=== PATIENT | female | born 1970 | race Caucasian/White ===

== ENCOUNTER 2017-08-11 13:55 | Day surgery (SDC) | payer BC ==
[2017-08-07 16:02] LABS: BASOPHILS 0.6 %; BASOPHILS ABSOLUTE 0.05 10/3/uL (0.0-0.16); EOSINOPHILS 1.3 %; EOSINOPHILS ABSOLUTE 0.11 10/3/uL (0.0-0.53); HEMOGLOBIN 12.1 g/dL (12.0-16.0); IMMATURE GRANULOCYTES 0.2 %; IMMATURE GRANULOCYTES ABSOLUTE 0.02 10/3/uL (0.0-0.11); LYMPHOCYTES 26.7 %; LYMPHOCYTES ABSOLUTE 2.26 10/3/uL (0.67-4.30); MEAN CORPUS HGB CONC 32.4 g/dL (32.0-36.0); MEAN CORPUSCULAR HEMOGLOB 29.2 pg (26.0-34.0); MEAN CORPUSCULAR VOLUME 90.3 fL (80-100); MEAN PLATELET VOLUME 9.7 fL (9.2-13.0); MONOCYTES 5.7 %; MONOCYTES ABSOLUTE 0.48 10/3/uL (0.21-1.20); NEUTROPHILS 65.5 %; NEUTROPHILS ABSOLUTE 5.54 10/3/uL (2.02-8.40); PLATELET COUNT 425 10/3/uL (150-400); RBC DISTRIBUTION WIDTH 15.5 % (12.0-16.0); RED CELL COUNT 4.14 10/6/uL (4.0-5.6); WHITE BLOOD CELLS 8.5 10/3/uL (4.5-10.5)
[2017-08-07 16:04] LABS: HEMATOCRIT 37.4 % (36.0-48.0); MANUAL DIFF NO %
[2017-08-07 16:18] LABS: BUN (BLOOD UREA NITROGEN) 11 MG/DL (6-23); CHLORIDE, SERUM 108 MMOL/L (96-112); CO2 (CARBON DIOXIDE) 26 MMOL/L (24-34); CREATININE 0.64 MG/DL (0.55-1.02); GFR AFRICAN AMERICAN 121 ML/MIN (>=60); GFR NON AFRICAN AMERICAN 105 ML/MIN (>=60); GLUCOSE, SERUM 90 MG/DL (60-99); POTASSIUM, SERUM 3.8 MMOL/L (3.5-5.3); SODIUM, SERUM 138 MMOL/L (135-148)
[2017-08-07 16:19] LABS: CALCIUM, SERUM 8.5 MG/DL (8.5-10.4)
[~2017-08-11] VITALS: Ht 162.6 cm; Wt 54.4 kg
--- NOTE | ~2017-08-11 | OP ---
Record Of [address] [place]. [address] NAME: AMERICA PETERSEN : 66 STATUS : [facility]#: [id number] AGE: 47 ADM/REG DATE : 08/11/17 MR#: [id number] REPORT SERV DATE: 08/12/17 DICTATED BY: LIYA HARRIS DATE: 08/11/17 REPORT STATUS : Draft TRANSCRIBED BY: MODL DATE: 08/11/17 DATE OF PROCEDURE: PREOPERATIVE DIAGNOSES: 1. Soft tissue tumor of the left flank. 2. Soft tissue tumor of the left posterior scapular area. OPERATION: 1. Resection of soft tissue tumor of the left flank. Intramuscular large lipoma. 2. Resection of soft tissue tumor subcutaneous of the left posterior scapular area. POSTOPERATIVE DIAGNOSES: 1. Soft tissue tumors of the left flank intramuscular lipoma. Well encapsulated, large. 2. Soft tissue tumor of the left posterior scapular area, subcutaneous, multi-lobulated, and encapsulated lipomatous mass. CLINICAL LAB TECHNOLOGIST RESIDENT SURGEON: Ericka Garza M.D. ANESTHESIA: General. COMPLICATIONS: None. ESTIMATED BLOOD LOSS: Minimal. COUNTS: Correct. DISPOSITION: PACU. SPECIMENS: To pathology: 1. Soft tissue tumor of the left flank. The area measures 8 x 7 cm, well encapsulated lipomatous tumor. 2. Soft tissue tumor of the left posterior scapular area. Tumor measures 4 x 6.5 cm. TYPE OF RESECTION: Complete resection. DRAINS: None. Preoperative evaluation of pain with chest x-rays, ultrasounds, physical exams, and review of systems as well as history. EDUCATION: 1. The patient educated in the management of soft tissue tumor. 2. Informed consent. 3. General surgical procedures. Informed consent obtained. Record Of [address] [place]. [address] NAME: AMERICA PETERSEN : 66 STATUS : [facility] PAT#: [id number] AGE: 47 ADM/REG DATE : 08/11/17 MR#: [id number] REPORT SERV DATE: 08/12/17 DICTATED BY: LIYA HARRIS DATE: 08/11/17 REPORT STATUS : Draft TRANSCRIBED BY: MODL DATE: 08/11/17 DISCUSSION: We discussed the options in management, indication, potential risks, complications, limitations, and alternatives. SUMMARY: She was brought to the operating room, placed in supine. The patient identified. Procedure confirmed. A time-out protocol enforced. Prophylactic IV antibiotics given. She was placed in the right lateral decubitus position. The left flank and the left scapular area were prepped and draped and exposed. She was in the right lateral decubitus position. The flank area was initially approached. A transverse incision was made directly over the area, carried down through the underlying subcutaneous tissue. We used a scalpel. The superficial aponeurosis was sharply incised exposing the underlying flank muscles. This is part of the oblique muscles of the left flank. Obviously, the tumor was intramuscular. So, the fibers of the muscle well and split in its longitudinal direction. After we the fibers of the muscle, we clearly exposed the soft tissue lipomatous, well- lobulated yellowish tumor. Using careful technique, combination of retraction, sharp dissection with the scalpel, very selective limited electrocoagulation. Using the plasma blade, we the tumor from the surrounding muscle layers and from the underlying ribs. The tumor was excised completely and sent to pathology for analysis. Meticulous technique was used throughout the field. A small nerve sensory branch inferior to the tumor was dissected free and preserved intact. The small vessels were electrocoagulated. No large vessels were dissected, encountered, or transected. As we the specimen from the cavity of the flank in all directions superiorly, inferiorly, anteriorly, and posteriorly as well as next to the ribs, we ensured that all the lipomatous tissue was removed. This was removed in one piece at this one single mass that was well encapsulated. Hemostasis was secured. The field was irrigated with normal saline solution and then we used Baldo to enhance hemostasis. No evidence of any residual masses were left in the field. The muscle fibers were approximated with interrupted sutures of 3-0 PDS. We then approximated the superficial aponeurosis with interrupted sutures of 3-0 PDS and then, the dermis with interrupted sutures of 3-0 Monocryl. The field was also irrigated with 0.25% Marcaine for postoperative pain control. A transverse incision was then made directly over the scapula over the mass, carried down through the underlying subcutaneous tissue. The lobulated, lipomatous, yellowish tissue was then encountered; dissected free; and from the overlying skin and from the underlying muscle tissues in all directions. Careful meticulous technique was used to isolate the capsule of the mass. We used a scalpel sharp dissection little by little the mass from the surrounding structures. Very selective electrocoagulation was used for hemostasis. The entire mass was removed. No pathological lipomatous tissue was left in the field. The mass was sent to pathology for analysis. Hemostasis secured. We used Baldo to enhance hemostasis. We also irrigated the field with 0.25% Marcaine for postoperative pain control. The dermis was then approximated with interrupted sutures of 3- 0 Monocryl. Silver-impregnated dressings were applied to both areas. An Earle bandage will Record Of Operation [address] [place]. [address] NAME: AMERICA PETERSEN : 66 STATUS : [facility] PAT#: [id number] AGE: 47 ADM/REG DATE : 08/11/17 MR#: [id number] REPORT SERV DATE: 08/12/17 DICTATED BY: LIYA HARRIS. DATE: 08/11/17 REPORT STATUS : Draft TRANSCRIBED BY: MARIANA DATE: 08/11/17 be applied to the chest wall and flank as well. She has tolerated the procedure well. No complications. At the end, an exit time-out protocol was enforced. She was sent to PACU in stable condition. Family will be informed. Instructions, followup appointment, prescriptions, and contact information have been provided. My cell number was given to them. MARGARETTE/MARIANA Liya Harris M.D. / [phone] CC: Casa Steele II, M.D. LORI GLASS, NP
[~2017-08-11 13:55] MED LIST: EXCEDRIN MIGRA1 EAC1 PO; QUASENSE PO; TUMSROLL PO
== END 2017-08-11 20:43 | disposition home or self-care (01) ==
LOC: SDC 13:55
PROVIDERS: Surgery
PROC: 0JB80ZZ Excision of Abdomen Subcutaneous Tissue and Fascia, Open Approach (ICD-10-PCS; 2017-08-11)
PROC: 0JB70ZZ Excision of Back Subcutaneous Tissue and Fascia, Open Approach (ICD-10-PCS; principal; 2017-08-11 15:15)
DX: D17.9 Benign lipomatous neoplasm, unspecified (principal); M79.9 Soft tissue disorder, unspecified; K21.9 Gastro-esophageal reflux disease without esophagitis; Z90.89 Acquired absence of other organs; Z82.49 Family history of ischemic heart disease and other diseases of the circulatory system; Z80.3 Family history of malignant neoplasm of breast; Z79.82 Long term (current) use of aspirin; Z79.899 Other long term (current) drug therapy
CPT/HCPCS: 80048; 84703; 85025; 88304; A9270-GY; J0690; J2250; J2270; J2370; J2405; J2550; J3010